=== PATIENT | female | born 1950 | race Caucasian/White ===

== ENCOUNTER 2025-08-30 13:30 | Emergency (ER) | payer OTHER ==
[~2025-08-30 13:30] MED LIST: Iopamidol 370 76% 100 ML VIAL ONE
[2025-08-30 14:41] LABS: Hematocrit 45.6 % (36.0-47.0); Hemoglobin 14.3 g/dL (12.0-16.0); Mean Corpuscular Hemoglobin 28.4 pg (27.0-31.0); Mean Corpuscular Volume 90.9 fl (78.0-98.0); Platelet Count 215 10x3/uL (130-400); Red Blood Cell (RBC) Count 5.02 mill/uL (4.20-5.40); White Blood Cell (WBC) Count 6.1 10x3/uL (4.8-10.8)
[2025-08-30 14:51] LABS: Manual Diff?? YES
[2025-08-30 14:52] LABS: MDiff Complete? YES; Platelet Adequacy Comment Appears Adequate
[2025-08-30 14:55] LABS: Troponin I Less than 0.010 ng/mL (< 0.028)
[2025-08-30 14:59] LABS: ALT (SGPT) 22 U/L (Less than 34); AST (SGOT) 30 U/L (11-34); Albumin 4.7 g/dL (3.1-4.5); Alkaline Phosphatase 89 U/L (40-110); Anion Gap 17 mmol/L (10-20); BUN (Urea Nitrogen) 18 mg/dL (9.8-20.1); Bilirubin, Total 1.1 mg/dL (0.3-1.2); Calc. Creatinine Clearance 0 mL/min (70-130); Calcium 10.0 mg/dL (7.8-10.44); Carbon Dioxide 23 mmol/L (23-31); Chloride 105 mmol/L (98-107); Globulin 3.5 g/dL (2.4-3.5); Glucose 92 mg/dL (83-110); Magnesium 2.0 mg/dL (1.6-2.6); Potassium 3.6 mmol/L (3.5-5.1); Sodium 141 mmol/L (136-145)
[2025-08-30] MEDS ORDERED: Cyclobenzaprine 10 MG TAB ONE (16:06)
[2025-08-30] MEDS ORDERED: Ketorolac Tromethamine 30 MG (1 mL) VIAL ONE (16:06)
== END 2025-08-30 16:15 | disposition home or self-care (01) ==
LOC: MADERS 13:30
DX: S29.011A Strain of muscle and tendon of front wall of thorax, initial encounter (principal); S16.1XXA Strain of muscle, fascia and tendon at neck level, initial encounter; R94.31 Abnormal electrocardiogram [ECG] [EKG]; I45.10 Unspecified right bundle-branch block; I10 Essential (primary) hypertension; E78.00 Pure hypercholesterolemia, unspecified; K21.9 Gastro-esophageal reflux disease without esophagitis; Z79.899 Other long term (current) drug therapy; V89.2XXA Person injured in unspecified motor-vehicle accident, traffic, initial encounter
CPT/HCPCS: 36415; 70450; 71260; 72125; 74177; 80053; 83735; 83880; 84484; 85025; 93005; J1885; Q9967